=== PATIENT | male | born 1965 | race Caucasian/White ===

== ENCOUNTER 2016-11-13 12:30 | Emergency (ER) | payer OTHER ==
[2016-11-13] MEDS ORDERED: MORPHINE SULFATE 10 MG/ML INJ IM ONE (12:41)
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
[2016-11-13 14:55] VITALS: BP 138/83
== END 2016-11-13 14:57 | disposition home or self-care (01) ==
LOC: ER 12:30
DX: S39.012A Strain of muscle, fascia and tendon of lower back, initial encounter (principal); V49.50XA Passenger injured in collision with unspecified motor vehicles in traffic accident, initial encounter; M51.27 Other intervertebral disc displacement, lumbosacral region
CPT/HCPCS: 99284; 96372; 72131; J2270